=== PATIENT | female | born 2000 | race Two or more races ===

== ENCOUNTER 2024-02-22 06:00 | Outpatient (CLI) | payer OTHER ==
[~2024-02-22] VITALS: Ht 152.4 cm; Wt 81.6 kg
[2024-02-22 09:40] LABS: MEAN CELL VOLUME 71.9 fL (80.00-100.00); MEAN CORPUSCULAR HGB CONC 27.7 g/dl (32.0-36.0); PLATELET COUNT 538 K/uL (150-450); RED BLOOD COUNT 2.54 M/uL (4.00-6.00); RED CELL DISTRIBUTION WIDTH 20.8 % (11.5-14.5)
[2024-02-22] MEDS ORDERED: IRON236 MG PO (09:40)
[2024-02-22 09:44] VITALS: BP 128/79
[2024-02-22 09:56] LABS: HEMATOCRIT 18.3 % (36.0-45.00)
[2024-02-22 09:57] LABS: HEMOGLOBIN 5.1 g/dL (12.0-15.00)
[2024-02-22 10:15] LABS: INR 0.99; PARTIAL THROMBOPLASTIN TIME 24.2 SECONDS (22.0-34.0); PROTHROMBIN TIME 10.8 SECONDS (9.0-11.5)
[2024-02-22 10:33] LABS: URINE APPEARANCE Clear; URINE BILIRRUBIN Negative (NEGATIVE); URINE BLOOD Negative; URINE COLOR Yellow; URINE GLUCOSE Negative (NEGATIVE); URINE KETONE Trace (NEGATIVE); URINE LEUKOCYTE Negative; URINE NITRATE Negative; URINE PROTEIN Negative (NEGATIVE)
[2024-02-22 10:38] LABS: URINE BACTERIA 108.9 uL (0.0-1933); URINE EPITHELIAL CELLS 18.3 uL (0.0-38.8); URINE RBC 5.1 uL (0.0-20.8); URINE WBC 7.4 uL (0.0-23.2)
[2024-02-22 10:45] LABS: URINE CAST 0.14 uL (0.0-1.40)
[2024-02-22 10:58] LABS: ALBUMIN 3.1 gm/dL (3.4-5.0); BILIRUBIN TOTAL 0.23 mg/dL (0.3-1.2); CALCIUM 8.6 mg/dL (8.5-10.1); CREATININE SERUM 0.56 mg/dL (0.55-1.02); GFR 135.37; GLOBULINA 3.5 G/DL (2.4-3.5); POTASSIUM 3.84 mEq/L (3.5-5.1); TOTAL PROTEIN 6.6 gm/dL (6.4-8.2)
[2024-02-22 12:05] LABS: RH POSITIVE
== END 2024-02-22 08:01 | disposition home or self-care (01) ==
LOC: LAB 06:00 → EDSTATUS 03-12 08:45 → SURH 03-12 08:45
PROVIDERS: ATTEND Obstetrics & Gynecology
DX: D25.1 Intramural leiomyoma of uterus (principal); D25.2 Subserosal leiomyoma of uterus

== ENCOUNTER 2024-02-22 10:10 | Inpatient (IN) | payer OTHER ==
[~2024-02-22] VITALS: Ht 165.1 cm; Wt 81.6 kg
[~2024-02-22 10:10] MED LIST: IRON236 MG PO
[2024-02-22] MEDS ORDERED: 0.9 % SODIUM CHLORIDE 1,000 ML IV STA (11:04)
[2024-02-22 11:38] LABS: MEAN CELL VOLUME 72.2 fL (80.00-100.00); MEAN CORPUSCULAR HGB CONC 28.1 g/dl (32.0-36.0); PLATELET COUNT 606 K/uL (150-450); RED BLOOD COUNT 2.78 M/uL (4.00-6.00); RED CELL DISTRIBUTION WIDTH 21.3 % (11.5-14.5)
[2024-02-22 11:39] LABS: HEMATOCRIT 20.1 % (36.0-45.00); MEAN CORPUSCULAR HEMOGLOBIN 20.1 pg (27.00-32.0)
[2024-02-22 11:40] LABS: HEMOGLOBIN 5.6 g/dL (12.0-15.00)
[2024-02-22 11:52] LABS: INR 0.99; PARTIAL THROMBOPLASTIN TIME 23.4 SECONDS (22.0-34.0); PROTHROMBIN TIME 10.8 SECONDS (9.0-11.5)
[2024-02-22 12:10] LABS: CALCIUM 8.7 mg/dL (8.5-10.1); CREATININE SERUM 0.59 mg/dL (0.55-1.02); GFR 127.46; POTASSIUM 3.58 mEq/L (3.5-5.1)
[2024-02-22] MEDS ORDERED: ESTROGENS, CONJUGATED 25 MG VIAL IV ONE (19:45)
[2024-02-22] MEDS ORDERED: ESTROGENS, CONJUGATED 25 MG VIAL ONE (19:55)
[2024-02-22] MEDS ORDERED: 0.9 % SODIUM CHLORIDE 1,000 ML IV SCH (20:30)
[2024-02-22] MEDS ORDERED: SOD FERRIC GLUC COMPLX/SUCROSE 62.5 MG in 0.9 % SODIUM CHLORIDE 50 ML IV SCH (20:43)
[2024-02-22] MEDS ORDERED: ACETAMINOPHEN 500 MG GEL..CAP PO PRN (20:45)
[2024-02-22 23:49] VITALS: BP 97/60; O2SAT 100
[2024-02-23 01:05] LABS: PH,URINE 5.5 (5.0-8.0); URINE APPEARANCE Turbid; URINE BILIRRUBIN Small (NEGATIVE); URINE BLOOD Large; URINE COLOR Red; URINE GLUCOSE Negative (NEGATIVE); URINE KETONE Negative (NEGATIVE); URINE LEUKOCYTE Small; URINE NITRATE Negative; URINE UROBILINOGEN 0.2 E.U./dl
[2024-02-23 01:09] LABS: URINE BACTERIA 1946.1 uL (0.0-1933); URINE EPITHELIAL CELLS 178.7 uL (0.0-38.8); URINE WBC 235.1 uL (0.0-23.2)
[2024-02-23 01:22] LABS: URINE PROTEIN 300 (NEGATIVE); URINE RBC > 10558.9 uL (0.0-20.8)
[2024-02-23 01:53] VITALS: BP 103/59; O2SAT 98
[2024-02-23 07:33] VITALS: BP 93/58
[2024-02-23] MEDS ORDERED: IRON FUM,PS/FOLIC/BCOMP,C NO.9 1 CAP CAPSULE PO SCH (09:00)
[2024-02-23] MEDS ORDERED: FAMOTIDINE/PF 20 MG in 0.9 % SODIUM CHLORIDE 8 ML IV PUSH SCH (09:00)
[2024-02-23] MEDS ORDERED: ESTROGENS, CONJUGATED 25 MG in DEXTROSE 5 % IN WATER 50 ML IV SCH (09:18)
[2024-02-23 18:10] VITALS: BP 102/57
[2024-02-23 23:23] LABS: TSH 3.46 uIU/mL (0.358-3.74)
[2024-02-23 23:56] LABS: COL ADP 92 SECONDS (56-102); COL EPI 120 SECONDS (82-175)
[2024-02-24 00:01] VITALS: BP 103/63
[2024-02-24 08:00] VITALS: BP 94/60
[2024-02-24] MEDS ORDERED: FAMOTIDINE/PF 20 MG/2 ML VIAL ONE (08:39)
[2024-02-24] MEDS ORDERED: DEXTROSE 5%-WATER 50ML IV.SOLN ONE (08:40)
[2024-02-24] MEDS ORDERED: AMINOCAPROIC ACID 250 MG/ML VIAL IV STA (09:45)
[2024-02-24 16:00] VITALS: BP 122/57
[2024-02-25 01:00] VITALS: BP 106/69
[2024-02-25] MEDS ORDERED: 0.9 % SODIUM CHLORIDE 10 ML VIAL IJ ONE (07:33)
[2024-02-25 07:52] VITALS: BP 97/62
[2024-02-25 14:32] LABS: HEMATOCRIT 36.6 % (36.0-45.00); HEMOGLOBIN 11.8 g/dL (12.0-15.00); MEAN CELL VOLUME 83.5 fL (80.00-100.00); MEAN CORPUSCULAR HEMOGLOBIN 26.9 pg (27.00-32.0); MEAN CORPUSCULAR HGB CONC 32.3 g/dl (32.0-36.0); PLATELET COUNT 419 K/uL (150-450); RED BLOOD COUNT 4.38 M/uL (4.00-6.00)
[2024-02-25 14:59] LABS: CALCIUM 8.8 mg/dL (8.5-10.1); CREATININE SERUM 0.83 mg/dL (0.55-1.02); GFR 85.96; POTASSIUM 3.79 mEq/L (3.5-5.1)
[2024-02-25 15:34] VITALS: BP 95/61
[2024-02-25] MEDS ORDERED: FAMOtidine 20 MG TABLET PO SCH (21:00)
[2024-02-26 00:26] VITALS: BP 109/73
[2024-02-26 08:42] VITALS: BP 110/73
[2024-02-26 10:12] LABS: HEMATOCRIT 36.3 % (36.0-45.00); HEMOGLOBIN 11.5 g/dL (12.0-15.00); RED BLOOD COUNT 4.3 M/uL (4.00-6.00)
[2024-02-26] MEDS ORDERED: SOD FERRIC GLUC COMPLX/SUCROSE 62.5 MG in 0.9 % SODIUM CHLORIDE 50 ML IV NR (10:45)
[2024-02-26 15:51] VITALS: BP 103/65
[2024-02-27 01:15] VITALS: BP 101/63
[2024-02-27 08:03] VITALS: BP 117/79
[2024-02-27 15:27] VITALS: BP 99/66
[2024-02-27 21:07] LABS: HEMATOCRIT 36.9 % (36.0-45.00); HEMOGLOBIN 11.6 g/dL (12.0-15.00); MEAN CELL VOLUME 86.4 fL (80.00-100.00); MEAN CORPUSCULAR HEMOGLOBIN 27.2 pg (27.00-32.0); MEAN CORPUSCULAR HGB CONC 31.4 g/dl (32.0-36.0); PLATELET COUNT 359 K/uL (150-450); RED BLOOD COUNT 4.27 M/uL (4.00-6.00)
[2024-02-27] MEDS ORDERED: CEFOXITIN SODIUM 2,000 MG VIAL IV ONE (21:15)
[2024-02-27 21:21] LABS: RED CELL DISTRIBUTION WIDTH 25.4 % (11.5-14.5)
[2024-02-27] MEDS ORDERED: KETOROLAC TROMETHAMINE 60 MG VIAL IM STA (22:37)
[2024-02-27] MEDS ORDERED: PROMETHAZINE HCL 25 MG/ML AMPUL IM PRN (22:45)
[2024-02-27] MEDS ORDERED: RINGERS SOLUTION,LACTATED 1,000 ML IV SCH (22:45)
[2024-02-27] MEDS ORDERED: MEPERIDINE HCL/PF 50 MG/ML VIAL IM PRN (22:45)
[2024-02-28] MEDS ORDERED: OxyCODONE HCL/APAP UD (PERCOCET) PO PRN
[2024-02-28] MEDS ORDERED: MORPHINE SULFATE 4 MG/ML VIAL IV ONE (01:30)
[2024-02-28 02:00] VITALS: BP 107/67
[2024-02-28 04:33] VITALS: O2SAT 100
[2024-02-28 04:58] LABS: HEMATOCRIT 36.3 % (36.0-45.00); HEMOGLOBIN 11.6 g/dL (12.0-15.00); MEAN CELL VOLUME 84.9 fL (80.00-100.00); MEAN CORPUSCULAR HEMOGLOBIN 27.1 pg (27.00-32.0); MEAN CORPUSCULAR HGB CONC 31.9 g/dl (32.0-36.0); PLATELET COUNT 381 K/uL (150-450); RED BLOOD COUNT 4.28 M/uL (4.00-6.00); RED CELL DISTRIBUTION WIDTH 25.1 % (11.5-14.5)
[2024-02-28 08:00] VITALS: BP 130/57
[2024-02-28 16:01] VITALS: BP 107/67
[2024-02-29 00:52] VITALS: BP 102/63
[2024-02-29 05:52] VITALS: BP 119/60
[2024-02-29 08:48] VITALS: BP 92/62
== END 2024-02-29 12:23 | disposition home or self-care (01) | DRG 743 ==
LOC: ER 10:12 → OB/GYN 23:25
PROVIDERS: Emergency Medicine; General Practice; Internal Medicine; Internal Medicine Hematology & Oncology; Student in an Organized Health Care Education/Training Program; ADMIT Obstetrics & Gynecology; ATTEND Obstetrics & Gynecology
PROC: BW4GZZZ Ultrasonography of Pelvic Region (ICD-10-PCS; 2024-02-23)
PROC: 30233N1 Transfusion of Nonautologous Red Blood Cells into Peripheral Vein, Percutaneous Approach (ICD-10-PCS; 2024-02-24)
PROC: 0UB90ZZ Excision of Uterus, Open Approach (ICD-10-PCS; 2024-02-27)
PROC: 0U510ZZ Destruction of Left Ovary, Open Approach (ICD-10-PCS; principal; 2024-02-27 17:00)
DX: D25.1 Intramural leiomyoma of uterus (principal); D25.2 Subserosal leiomyoma of uterus; N93.9 Abnormal uterine and vaginal bleeding, unspecified; D64.9 Anemia, unspecified; D25.0 Submucous leiomyoma of uterus; N92.1 Excessive and frequent menstruation with irregular cycle; N80.9 Endometriosis, unspecified; Z98.890 Other specified postprocedural states